=== PATIENT | female | born 1955 | race Caucasian/White ===

== ENCOUNTER 2019-05-17 07:54 | Day surgery (SDC) | payer OTHER ==
[2019-05-17] MEDS ORDERED: MIDAZOLAM HCL 5 MG/5 ML VIAL ONE (09:21)
[2019-05-17] MEDS: MEPERIDINE HCL/PF 100 MG/ML AMP ONE ×3 (10:13→10:18)
[2019-05-17] MEDS: MIDAZOLAM HCL 5 MG/5 ML VIAL ONE ×3 (10:13→10:18)
[2019-05-17 16:29] VITALS: BP_SYST 167
== END 2019-05-17 12:35 | disposition home or self-care (01) ==
LOC: SDS 07:54
PROVIDERS: ATTEND Internal Medicine Gastroenterology
DX: R11.2 Nausea with vomiting, unspecified (principal); K44.9 Diaphragmatic hernia without obstruction or gangrene; K29.70 Gastritis, unspecified, without bleeding; K31.89 Other diseases of stomach and duodenum; Z79.82 Long term (current) use of aspirin; Z79.899 Other long term (current) drug therapy
CPT/HCPCS: 36415; 43239; 87081; 88305; 88312; 88313; 99152; G0378; J2175; J2250